=== PATIENT | male | born 1940 | race Caucasian/White ===

== ENCOUNTER → 2024-03-27 11:17 | Outpatient (REF) | payer OTHER, SELFPAY | LOC: HWRAD 11:17 | PROVIDERS: ATTENDING PHYSICIAN Nurse Practitioner Family | DX: M54.50 Low back pain, unspecified (principal) | CPT/HCPCS: 72110 ==

== ENCOUNTER 2025-01-28 16:36 | Emergency (ER) | payer OTHER, SELFPAY ==
[2025-01-28 16:41] VITALS: BP 133/76
[2025-01-28 17:01] LABS: Hematocrit 41.2 % (39.0-52.0); Hemoglobin 13.7 g/dL (13.0-18.0); Mean Corp Hgb Conc. 33.3 g/dL (33.0-37.0); Mean Corpuscular Volume 98.3 fL (80.0-94.0); Nucleated Red Blood Cells % 0 % (-); Platelet Count 218 10^3/uL (130-400); Red Cell Dist. Width 12.7 % (11.5-14.5)
[2025-01-28 17:05] LABS: Urine Character Clear (Clear)
[2025-01-28 17:14] LABS: ALT (SGPT) 21 U/L (0-50); AST (SGOT) 26 U/L (17-59); Albumin 4.4 g/dl (3.5-5.0); Alkaline Phosphatase 80 U/L (38-126); Blood Urea Nitrogen 19 mg/dl (9-20); Calcium 9.2 mg/dl (8.4-10.2); Carbon Dioxide 29 mmol/L (22-30); Chloride 103 mmol/L (98-107); Glucose 115 mg/dl (70-99); Potassium 4.3 mmol/L (3.5-5.1); Sodium 135 mmol/L (135-145); Total Protein 7.4 g/dl (6.3-8.2); eGFR > 60.00
[2025-01-28 18:26] LABS: Urine Squamous Cell 0-2 /LPF (Few)
[2025-01-28 20:48] VITALS: BMI 27.3
[2025-01-28 20:52] VITALS: BP 137/86
[2025-01-28 21:00] VITALS: BP 133/90
[2025-01-28 22:00] VITALS: BP 153/92
[2025-01-28 23:00] VITALS: BP 154/98
[2025-01-28] MEDS: TORADOL 15 MG IV (23:49)
[2025-01-29] VITALS: BP 144/93
--- NOTE | 2025-01-29 00:33 | ED.GENMED ---
History of Present Illness
General
Chief Complaint: Flank Pain
Source: patient
Time Seen by Provider: 01/28/25 21:10
History of Present Illness
History of Present Illness:
Note:
CHIEF COMPLAINT(S)
Abdominal and back pain.
HISTORY OF PRESENT ILLNESS
The patient is an 84-year-old male who presented with abdominal and back pain that began around 6:00 PM last night. The pain was localized to the left side and was severe enough to cause frequent nocturnal awakenings. The patient reported several
unsuccessful trips to the toilet and episodes of retching without emesis. The pain persisted throughout the day and has a waxing and waning character. The patient has denied any prior history of kidney stones.
PAST MEDICAL AND SURGICAL HISTORY
The patient has undergone bilateral knee replacements and right hip replacement a couple of years ago. He denies any history of diabetes or hypertension. He is not diabetic and has no history of hypertension or high cholesterol.
MEDICATIONS
The patient routinely takes a multivitamin (Centrum) and sqvm-[id number]-[id number] medications. He also takes Avedart (dutasteride) and Finasteride, as well as a blood pressure medication whose name he could not recall.
PHYSICAL EXAM
General: Alert, no acute distress.
Skin: Warm, dry.
Head: Normocephalic, atraumatic.
Neck: Supple, trachea midline.
Eyes, Ears, Nose, Mouth and Throat: Oral mucosa moist.
Cardiovascular: Normal peripheral perfusion, No edema.
Respiratory: Lungs clear to auscultation bilaterally.
Gastrointestinal: Abdominal tenderness to palpation on the left side, nondistended.
Back: No costovertebral angle tenderness.
Musculoskeletal: Normal ROM, normal strength.
Neurological: Alert and oriented to person, place, time, and situation, No focal neurological deficit observed.
Psychiatric: Cooperative, appropriate mood & affect.
PLAN
A scan of the abdomen is planned to evaluate for potential causes of the pain, such as diverticulitis or a kidney stone. The presence of blood in the urine suggests the possibility of a kidney stone. The patient was advised to report any changes in
pain or discomfort.
DIFFERENTIAL DIAGNOSIS
The Differential Diagnosis includes, in no particular order and is not limited to:
1. Kidney stones
2. Diverticulitis
3. Urinary tract infection
4. Abdominal aortic aneurysm
5. Musculoskeletal pain
6. Pancreatitis
7. Gallstones
8. Pyelonephritis
9. Intestinal obstruction
10. Peptic ulcer disease
Disposition:
SUMMARY OF ENCOUNTER
An 84-year-old male presented with abdominal and back pain primarily on the left side. The pain started around 6:00 PM last night and was severe enough to cause frequent nocturnal awakenings. Clinical evaluation indicated no prior history of kidney
stones. On presentation, the patient had persistent pain characterized by waxing and waning intensity. A CT scan revealed a 4 mm distal left ureteral calculus with mild hydronephrosis. Urinalysis showed 4+ blood, without significant squamous cells
and no clinical concerns for infection. He experienced relief upon administration of pain management in the emergency department.
DISPOSITION
Discharge
ASSESSMENT
The patients presentation and imaging findings were consistent with a distal left ureteral calculus (kidney stone) leading to mild hydronephrosis.
PLAN
The patient was advised to follow up with outpatient urology. Pain was managed in the emergency department, and further instructions include continuation of benign prostatic hyperplasia (BPH) medications and starting tamsulosin (Flomax) for stone
passage.
INDEPENDENT REVIEW OF LABS AND INTERPRETATION OF TESTS
My independent review of CBC is normal. My independent review of CMP is normal. The urinalysis shows 4+ blood with zero squamous cells, indicating no clinical concern for infection. My independent interpretation of the CT scan reveals a 4 mm distal
left ureteral calculus with mild hydronephrosis.
PATIENT EDUCATION AND COUNSELING
The patient was educated about the presence of a kidney stone, its potential complications, and the importance of outpatient follow-up with urology to evaluate ongoing symptoms and potential need for further intervention.
FOLLOW-UP INSTRUCTIONS
The patient was advised to schedule a follow-up visit with an outpatient urologist.
MEDICATION RECONCILIATION
Continuation of BPH medications as previously prescribed. Tamsulosin (Flomax) was prescribed to aid in stone passage.
MEDICAL DECISION MAKING
- Number and Complexity of Problems Addressed: Chronic conditions affecting care included prior joint replacements. Differential diagnosis considered included kidney stones, diverticulitis, urinary tract infection, abdominal aortic aneurysm,
musculoskeletal pain, pancreatitis, gallstones, pyelonephritis, intestinal obstruction, and peptic ulcer disease.
- Data:
Category 1:
My independent review of CT imaging showed a distal left ureteral calculus with mild hydronephrosis.
- Risk:
Prescription medication was prescribed (tamsulosin) and consideration of admission/observation was made. Ultimately, the patient was deemed safe for outpatient management given reassurances from work-up and symptom control.
DIAGNOSIS
N20.1 - Calculus of ureter
Past History
Past History
ED Past Medical History: Other (BPH)
ED Past Surgical History: Orthopedic
Phy Exam
Physical Exam
Physical Exam:
.
Course
Orders/Labs/Results
Orders:
Orders
01/28/25 16:51
CMP [Comprehensive Metabolic Panel] Urgent
Complete Blood Count/With Diff Urgent
Urinalysis Reflex To Culture Urgent
Date Specimen was Collected: 01/28/25
Time Specimen was Collected: 16:45
Urine Microscopic Reflex Cult Urgent
Urine Culture Urgent
ASHLEY Source: U
Specimen Description:
Date Specimen was Collected: 01/28/25
Time Specimen was Collected: 16:45
01/28/25 21:28
CT Abd/pel Without Iv Or Oral Urgent
Comment:
Reason For Exam: L flank pain
01/28/25 23:47
Ketorolac [Toradol] 15 mg .ROUTE .STK-MED ONE
01/28/25 23:48
Ketorolac [Toradol] 15 mg IV NOW STA
Abnormal Lab Results
01/28/25
16:51
RBC 4.19 L 10^6/uL
(4.70-6.10)
MCV 98.3 H fL
(80.0-94.0)
MCH 32.7 H pg
(27.0-31.0)
Absolute Monos (auto) 1.4 H 10^3/uL
(0.1-0.6)
Monocytes % 13.3 H %
(1.7-9.3)
Glucose 115 H mg/dl
(70-99)
Ur Occult Blood Reflex 4+ A
(Negative)
Leukocyte Esterase Rfl 2+ A
(Negative)
Urine RBC 7-10 A /HPF
(0-2)
Urine WBC (Reflex) 11-15 A /HPF
(0-5)
Urine Albumin (Reflex) 1+ A
(Neg - Trace)
01/28/25 16:51
01/28/25 16:51
Vital Signs
Initial and Last Documented VS:
Initial Vital Signs
Temp Pulse Resp BP Pulse Ox
97.9 F 82 18 133/76 98
01/28/25 16:41 01/28/25 16:41 01/28/25 16:41 01/28/25 16:41 01/28/25 16:41
Last Documented Vital Signs
Temp Pulse Resp BP Pulse Ox
97.9 F 82 21 154/98 95
01/28/25 16:41 01/28/25 23:30 01/28/25 23:30 01/28/25 23:00 01/28/25 23:30
*Pulse Oximetry
SaO2: 95
Oxygen Mode of Delivery: Room air
Patient hypoxic: no
*Critical Care Note
Total Time (30-74mins, 75-104mins- exclusive of procedures): Not Applicable
ED Attending Note
-
Portions of this chart may have been created with voice recognition software.� Occasional wrong word or��sound alike� substitutions may have occurred due to the inherent limitations of voice recognition software.
Discharge Plan
Departure
Patient Disposition: Home (Routine Discharge)
Date of Disposition: 01/29/25
Time of Disposition: 00:34
Patient with high blood pressure during this ER visit?: Yes
Discharge Problem:
Kidney stone
Instructions: Kidney Stones (DC), BLOOD PRESSURE, Narcotic Pain Medication
Prescriptions:
New
hydrocodone-acetaminophen 5-325 mg tablet
2 tab PO Q6H PRN (Reason: Pain) Qty: 14 0RF
tamsulosin 0.4 mg capsule
0.4 mg PO HS Qty: 14 0RF
No Action
calcium carbonate 500 MG tablet
500 mg PO DAILY
vitamin K2 40 MCG tablet
40 mcg PO DAILY
terazosin 1 MG capsule
1 mg PO HS
ascorbic acid (vitamin C) [Vitamin C] 500 MG tablet
500 mg PO DAILY
finasteride 5 MG tablet
5 mg PO HS
rlwchtigzfl-Q9-Csefpuajz serr [Osteo Bi-Flex (5-Loxin)] 1 EACH tablet
1 ea PO DAILY
sz-sxc-jbitv-U3-vqnkroa-inundr [Centrum Silver Men] 1 EACH tablet
1 ea PO DAILY
cholecalciferol (vitamin D3) 5,000 UNIT tablet,disintegrating
5,000 unit PO DAILY
mupirocin 1 APPLIC ointment
1 applic intranasal BID Qty: 1 0RF
Patient Comments:
started pm 08/06/18, last dose 08/07/18 0530
sennosides [senna] 1 TABLET tablet
2 tab PO BID 0RF
acetaminophen 325 MG tablet
650 mg PO QID 0RF
magnesium hydroxide 30 ML suspension
30 ml PO DAILYPRN PRN (Reason: constipation) 0RF
aspirin 325 MG tablet,delayed release (DR/EC)
325 mg PO DAILY 0RF
oxycodone 5 MG tablet
5 mg PO Q4HPRN PRN (Reason: moderate-severe paini) Qty: 35 0RF
Rx Instructions:
dx TKA
ongoing therapy
1 tab moderate psin or 2 if pain severe
Referrals:
Wesly Ballard CRNP [Family Provider, Family Practice]
Activity Restrictions/Additional Instructions:
Please see urology Dr. Garland in the next 2 to 3 days for follow-up and reevaluation. Drink plenty of fluids and strain your urine. Return immediately for worsening symptoms, fevers, vomiting or any other concerns.
Interventions
Interventions:
*Risk Screen - Suicide Last Done: 01/28/25 16:41
*General Assessment Last Done: 01/28/25 20:48
*Neglect/Abuse Screening Last Done: 01/28/25 20:48
*ED COVID-19 Vaccine History Last Done: 01/28/25 20:48
*ED Influenza Vaccine History Last Done: 01/28/25 20:48
[facility] Risk Assessment Tool Last Done: 01/28/25 20:45
EK-Acygsg-Vjdgvbxjur Assessment Last Done: 01/28/25 20:45
ED-Male Genitourinary Assessment Last Done: 01/28/25 20:45
Discharge Date and Time
Print Language: CAMEROONIAN
== END 2025-01-29 00:55 | disposition home or self-care (01) ==
LOC: EMR 16:36
PROVIDERS: Emergency Medicine; EMERGENCY PHYSICIAN Emergency Medicine; FAMILY PHYSICIAN Nurse Practitioner Family
DX: N13.2 Hydronephrosis with renal and ureteral calculous obstruction (principal); N40.0 Benign prostatic hyperplasia without lower urinary tract symptoms; Z96.653 Presence of artificial knee joint, bilateral; Z96.641 Presence of right artificial hip joint
CPT/HCPCS: 99284; 96374; 74176; 80053; 81003; 81015; 85025; 87086

== ENCOUNTER → 2025-02-17 10:53 | Outpatient (REF) | payer OTHER, SELFPAY | LOC: HWRCS 10:53 | PROVIDERS: ATTENDING PHYSICIAN Nurse Practitioner Family | DX: H54.3 Unqualified visual loss, both eyes (principal) | CPT/HCPCS: 93306 ==